=== PATIENT | male | born 1985 | race Hispanic/Latino ===

== ENCOUNTER 2023-11-06 17:45 | Emergency (ER) | payer OTHER ==
[2023-11-06] MEDS ORDERED: Lidocaine 1% (PF) 30 ML VIAL ONE (18:03)
== END 2023-11-06 18:22 | disposition home or self-care (01) ==
LOC: EEVIPCON 17:45 → NAV ERS 17:45
DX: S51.812A Laceration without foreign body of left forearm, initial encounter (principal); F32.A Depression, unspecified; I10 Essential (primary) hypertension; Z79.899 Other long term (current) drug therapy; W26.8XXA Contact with other sharp object(s), not elsewhere classified, initial encounter
CPT/HCPCS: 12001; 99282; J2001